=== PATIENT | female | born 1945 | race Two or more races ===

== ENCOUNTER 2018-01-19 08:26 | Outpatient (CLI) | payer OTHER ==
[~2018-01-19 08:26] MED LIST: BRETHINE5 MG PO; MEDROLPACK PO; MICARDIS40 MG; NORVASC10 MG PO; SINGULAIR4 MG PO; THEOPHYLLINE400 MG; ZYRTEC10 MG PO; [UNRECOGNIZED DRUG - OTHER] MC
== END 2018-01-19 10:23 | disposition home or self-care (01) ==
LOC: MAMO-SONO 08:26
DX: Z12.31 Encounter for screening mammogram for malignant neoplasm of breast (principal); I10 Essential (primary) hypertension; Z12.10 Encounter for screening for malignant neoplasm of intestinal tract, unspecified; Z12.11 Encounter for screening for malignant neoplasm of colon

== ENCOUNTER 2018-02-03 08:22 | Outpatient (CLI) | payer OTHER | END 2018-02-03 08:31 | disposition home or self-care (01) | LOC: SONOGRAMA 08:22 | DX: L08.89 Other specified local infections of the skin and subcutaneous tissue (principal); R80.8 Other proteinuria ==

== ENCOUNTER 2018-04-02 08:23 | Outpatient (CLI) | payer OTHER | END 2018-04-02 08:24 | disposition home or self-care (01) | LOC: RAD 08:23 | DX: N20.0 Calculus of kidney (principal) ==

== ENCOUNTER 2018-05-11 07:42 | Outpatient (CLI) | payer OTHER | END 2018-05-11 07:44 | disposition home or self-care (01) | LOC: RAD 07:42 | DX: M25.511 Pain in right shoulder (principal) ==

== ENCOUNTER 2018-05-11 08:34 | Outpatient (CLI) | payer OTHER | END 2018-05-11 08:47 | disposition home or self-care (01) | LOC: SONOGRAMA 08:34 | DX: M25.50 Pain in unspecified joint (principal); R22.9 Localized swelling, mass and lump, unspecified ==

== ENCOUNTER 2018-06-21 07:46 | Outpatient (CLI) | payer OTHER | END 2018-06-21 07:52 | disposition home or self-care (01) | LOC: RAD 07:46 | DX: R07.89 Other chest pain (principal) ==

== ENCOUNTER 2018-11-04 09:02 | Outpatient (CLI) | payer OTHER | END 2018-11-04 09:04 | disposition home or self-care (01) | LOC: RAD 09:02 | DX: R53.81 Other malaise (principal); R05 Cough; J20.9 Acute bronchitis, unspecified ==

== ENCOUNTER 2019-04-21 01:44 | Emergency (ER) | payer OTHER ==
[~2019-04-21] VITALS: Ht 147.3 cm; Wt 80.3 kg
[2019-04-21] MEDS ORDERED: HYDROCHLOROTHIA25 MG (01:52)
[2019-04-21] MEDS ORDERED: ZOFRAN4 MG PO (06:27)
== END 2019-04-21 06:34 | disposition home or self-care (01) ==
LOC: ER 01:44
DX: K29.70 Gastritis, unspecified, without bleeding (principal)

== ENCOUNTER 2021-09-07 13:50 | Emergency (ER) | payer OTHER ==
[~2021-09-07] VITALS: Ht 147.3 cm; Wt 79.8 kg
[~2021-09-07 13:50] MED LIST changes: +HYDROCHLOROTHIA25 MG; +ZOFRAN4 MG PO
[2021-09-07] MEDS ORDERED: COZAAR25 MG PO (14:06)
== END 2021-09-07 20:19 | disposition home or self-care (01) ==
LOC: ER 13:50
DX: L03.113 Cellulitis of right upper limb (principal); M79.631 Pain in right forearm

== ENCOUNTER 2022-09-08 13:01 | Emergency (ER) | payer OTHER ==
[~2022-09-08] VITALS: Ht 147.3 cm; Wt 77.1 kg
[~2022-09-08 13:01] MED LIST changes: +COZAAR25 MG PO
== END 2022-09-08 19:10 | disposition home or self-care (01) ==
LOC: ER 13:01
DX: R00.1 Bradycardia, unspecified (principal); I10 Essential (primary) hypertension; R07.89 Other chest pain; Z88.8 Allergy status to other drugs, medicaments and biological substances

== ENCOUNTER 2024-09-06 07:59 | Outpatient (CLI) | payer OTHER ==
[~2024-09-06 07:59] MED LIST changes: +GABAPENTIN100 M2 PO
== END 2024-09-06 08:11 | disposition home or self-care (01) ==
LOC: RAD 07:59
PROVIDERS: ATTEND Internal Medicine Pulmonary Disease
DX: J45.30 Mild persistent asthma, uncomplicated (principal)

== ENCOUNTER 2024-10-24 12:19 | Emergency (ER) | payer OTHER ==
[~2024-10-24] VITALS: Ht 147.3 cm; Wt 78.9 kg
[2024-10-24 14:33] LABS: HEMATOCRIT 38.7 % (36.0-45.00); HEMOGLOBIN 12.6 g/dL (12.0-15.00); MEAN CELL VOLUME 93.5 fL (80.00-100.00); MEAN CORPUSCULAR HEMOGLOBIN 30.5 pg (27.00-32.0); MEAN CORPUSCULAR HGB CONC 32.6 g/dl (32.0-36.0); PLATELET COUNT 232 K/uL (150-450); RED BLOOD COUNT 4.14 M/uL (4.00-6.00); RED CELL DISTRIBUTION WIDTH 14.3 % (11.5-14.5)
== END 2024-10-24 15:27 | disposition home or self-care (01) ==
LOC: ER 12:19
PROVIDERS: General Practice
DX: S41.121A Laceration with foreign body of right upper arm, initial encounter (principal); S09.8XXA Other specified injuries of head, initial encounter; Y92.018 Other place in single-family (private) house as the place of occurrence of the external cause; R42 Dizziness and giddiness; W01.0XXA Fall on same level from slipping, tripping and stumbling without subsequent striking against object, initial encounter; Y93.G3 Activity, cooking and baking; Y92.010 Kitchen of single-family (private) house as the place of occurrence of the external cause